=== PATIENT | female | born 1945 | race Caucasian/White ===

== ENCOUNTER 2018-02-05 09:04 | Day surgery (SDC) | payer MEDICARE, BC ==
[~2018-02-05 09:04] MED LIST: AMLO10; ASPI81CH; Amaryl1 MG; Diovan160 MG; LORPSEER24; METFORMIN HCL1000 MG; TRAZ100; VENL150ER
== END 2018-02-05 11:26 | disposition home or self-care (01) ==
LOC: ORSCSDS 09:04
PROVIDERS: Ophthalmology
PROC: 08RK3JZ Replacement of Left Lens with Synthetic Substitute, Percutaneous Approach (ICD-10-PCS; principal; 2018-02-05 10:30)
DX: H25.12 Age-related nuclear cataract, left eye (principal); H52.202 Unspecified astigmatism, left eye; E11.9 Type 2 diabetes mellitus without complications; I10 Essential (primary) hypertension; Z79.82 Long term (current) use of aspirin; Z79.84 Long term (current) use of oral hypoglycemic drugs; Z79.899 Other long term (current) drug therapy; Z87.891 Personal history of nicotine dependence
CPT/HCPCS: 82947; J2250; J3010; J3301; J7040; V2632

== ENCOUNTER → 2019-01-19 | Outpatient (CLI) | payer MEDICARE, BC ==
[2019-01-19 12:30] LABS: BASOPHILS ABSOLUTE AUTO 0.02 K/mm3 (0.00-0.23); BASOPHILS PERCENT AUTO 0 % (0-2); EOSINOPHILS ABSOLUTE AUTO 0.01 K/mm3 (0.00-0.68); EOSINOPHILS PERCENT AUTO 0 % (0-6); Hematocrit 47.3 % (33.0-51.0); Hemoglobin 16.1 g/dL (11.5-16.0); IMMATURE GRAN ABSOLUTE AUTO 0.02 K/mm3 (0.00-0.10); IMMATURE GRAN PERCENT AUTO 0 % (0-1); LYMPHOCYTES ABSOLUTE AUTO 1.16 K/mm3 (0.84-5.20); LYMPHOCYTES PERCENT AUTO 17 % (21-46); MONOCYTES ABSOLUTE AUTO 0.73 K/mm3 (0.16-1.47); MONOCYTES PERCENT AUTO 11 % (4-13); Mean Corpuscular HGB 30.8 pg (26.0-34.0); Mean Corpuscular Volume 91 fL (80-100); Mean Platelet Volume 9.6 fL (9.1-12.4); NEUTROPHILS ABSOLUTE AUTO 4.75 K/mm3 (1.96-9.15); NEUTROPHILS PERCENT AUTO 71 % (41-73); Platelet Count 254 K/mm3 (150-400); RDW Coefficient Variation 13.1 % (11.7-14.2); RDW Standard Deviation 43.5 fL (35.1-46.3); Red Blood Cell Count 5.22 M/mm3 (3.80-5.20); White Blood Cell Count 6.69 K/mm3 (4.00-11.30)
[2019-01-19 12:39] LABS: Albumin, Blood 4.3 g/dL (3.4-5.0); Bilirubin, Total 0.6 mg/dL (0.1-1.0); Bun/Creatinine Ratio 25.5 (12.0-20.0); Calcium, Blood 9.4 mg/dL (8.5-10.1); Creatinine, Blood 1.61 mg/dL (0.40-1.00); Globulin, Blood 4.3 g/dL (2.2-4.0); Potassium, Blood 3.7 mmol/L (3.5-5.5); Total Protein, Blood 8.6 g/dL (6.4-8.2)
== END ==
LOC: LAB SHORT 12:22 → LAB EV 12:22
PROVIDERS: Emergency Medicine
DX: R10.32 Left lower quadrant pain (principal)
CPT/HCPCS: 80053; 85025

== ENCOUNTER → 2019-07-01 | Outpatient (CLI) | payer MEDICARE, BC ==
[2019-07-01 12:54] LABS: BASOPHILS ABSOLUTE AUTO 0.02 K/mm3 (0.00-0.23); BASOPHILS PERCENT AUTO 0 % (0-2); EOSINOPHILS ABSOLUTE AUTO 0.31 K/mm3 (0.00-0.68); EOSINOPHILS PERCENT AUTO 6 % (0-6); Hemoglobin 14.9 g/dL (11.5-16.0); IMMATURE GRAN ABSOLUTE AUTO 0.02 K/mm3 (0.00-0.10); IMMATURE GRAN PERCENT AUTO 0 % (0-1); LYMPHOCYTES ABSOLUTE AUTO 1.08 K/mm3 (0.84-5.20); LYMPHOCYTES PERCENT AUTO 20 % (21-46); MONOCYTES ABSOLUTE AUTO 0.52 K/mm3 (0.16-1.47); MONOCYTES PERCENT AUTO 10 % (4-13); Mean Corpuscular HGB 31.2 pg (26.0-34.0); Mean Corpuscular HGB Conc 33.9 g/dL (31.5-36.5); Mean Corpuscular Volume 92 fL (80-100); Mean Platelet Volume 9.1 fL (9.1-12.4); NEUTROPHILS ABSOLUTE AUTO 3.46 K/mm3 (1.96-9.15); NEUTROPHILS PERCENT AUTO 64 % (41-73); Platelet Count 238 K/mm3 (150-400); RDW Coefficient Variation 12.6 % (11.7-14.2); RDW Standard Deviation 42.8 fL (35.1-46.3); Red Blood Cell Count 4.78 M/mm3 (3.80-5.20); White Blood Cell Count 5.41 K/mm3 (4.00-11.30)
[2019-07-01 13:08] LABS: Alanine Aminotransfer (ALT/SGP 28 U/L (12-78); Albumin, Blood 4.1 g/dL (3.4-5.0); Alk Phos 83 U/L (40-126); Anion Gap 9 mmol/L (6-16); Aspartate Aminotrans (AST/SGOT 24 U/L (12-37); Bilirubin, Total 0.6 mg/dL (0.1-1.0); Blood Urea Nitrogen 31 mg/dL (8-24); Bun/Creatinine Ratio 20.7 (12.0-20.0); CO2, Blood 27 mmol/L (21-32); Calcium, Blood 8.9 mg/dL (8.5-10.1); Chloride, Blood 104 mmol/L (98-108); Glomerular Filtration Rate 34 (60-); Glucose, Blood 121 mg/dL (70-99); Potassium, Blood 3.6 mmol/L (3.5-5.5); Sodium, Blood 140 mmol/L (136-145); Total Protein, Blood 8.1 g/dL (6.4-8.2)
[2019-07-01 13:09] LABS: Troponin I <0.017 ng/mL (0.000-0.040)
== END | disposition home or self-care (01) ==
LOC: LAB EV 12:48 → LAB SHORT 12:48
PROVIDERS: Family Medicine
DX: R00.2 Palpitations (principal); N39.0 Urinary tract infection, site not specified
CPT/HCPCS: 80053; 83880; 84484; 85025; 87086

== ENCOUNTER → 2021-06-21 | Outpatient (CLI) | payer MEDICARE, BC ==
[2021-06-21 13:47] LABS: Alanine Aminotransfer (ALT/SGP 25 U/L (12-78); Alk Phos 95 U/L (50-136); Anion Gap 4 mmol/L (6-16); Aspartate Aminotrans (AST/SGOT 17 U/L (12-37); Bilirubin, Total 0.5 mg/dL (0.1-1.0); Blood Urea Nitrogen 23 mg/dL (8-24); Bun/Creatinine Ratio 20.4 (12.0-20.0); CHOL/HDL RATIO 3.5; CO2, Blood 29 mmol/L (21-32); Calcium, Blood 9.1 mg/dL (8.5-10.1); Chloride, Blood 105 mmol/L (98-108); Cholesterol 222 mg/dL (50-200); Creatinine, Blood 1.13 mg/dL (0.40-1.00); Globulin, Blood 4.1 g/dL (2.2-4.0); Glomerular Filtration Rate 47 (60-); Glucose, Blood 146 mg/dL (70-99); HDL Cholesterol 63 mg/dL (>39); LDL/HDL RATIO 2.2; Low Density Lipoprotein Chol 138 mg/dL (0-110); Potassium, Blood 4.4 mmol/L (3.5-5.5); Sodium, Blood 138 mmol/L (136-145); Total Protein, Blood 8.1 g/dL (6.4-8.2); Triglycerides 103 mg/dL (30-160); Very Low Density Lipoprot Chol 20 mg/dL (6-32)
[2021-06-21 14:08] LABS: BASOPHILS ABSOLUTE AUTO 0.05 K/mm3 (0.00-0.23); BASOPHILS PERCENT AUTO 1 % (0-2); EOSINOPHILS ABSOLUTE AUTO 0.22 K/mm3 (0.00-0.68); EOSINOPHILS PERCENT AUTO 4 % (0-6); IMMATURE GRAN ABSOLUTE AUTO 0.04 K/mm3 (0.00-0.10); IMMATURE GRAN PERCENT AUTO 1 % (0-1); LYMPHOCYTES ABSOLUTE AUTO 1.51 K/mm3 (0.84-5.20); LYMPHOCYTES PERCENT AUTO 30 % (21-46); MONOCYTES ABSOLUTE AUTO 0.37 K/mm3 (0.16-1.47); MONOCYTES PERCENT AUTO 7 % (4-13); Mean Corpuscular HGB 30.5 pg (26.0-34.0); Mean Corpuscular HGB Conc 32.6 g/dL (31.5-36.5); Mean Corpuscular Volume 94 fL (80-100); NEUTROPHILS ABSOLUTE AUTO 2.84 K/mm3 (1.96-9.15); NEUTROPHILS PERCENT AUTO 56 % (41-73); RDW Standard Deviation 45.2 fL (35.1-46.3); Red Blood Cell Count 4.59 M/mm3 (3.80-5.20); White Blood Cell Count 5.03 K/mm3 (4.00-11.30)
[2021-06-21 14:17] LABS: Mean Platelet Volume 10.2 fL (9.1-12.4); Platelet Count 259 K/mm3 (150-400)
[2021-06-21 14:42] LABS: Microalb/Creat Ratio UR, Rand 437.879 mg/g (0.000-30.000)
== END ==
LOC: LAB SHORT 10:30 → LAB 10:30
PROVIDERS: Physician Assistant
DX: E11.9 Type 2 diabetes mellitus without complications (principal); Z88.5 Allergy status to narcotic agent; Z88.6 Allergy status to analgesic agent; Z79.84 Long term (current) use of oral hypoglycemic drugs
CPT/HCPCS: 80053; 80061; 82043; 82570; 83036; 85025

== ENCOUNTER 2023-09-15 13:13 | Inpatient (IN) | payer MEDICARE, BC ==
[~2023-09-15] VITALS: Ht 160 cm; Wt 79.0 kg
[~2023-09-15 13:13] MED LIST changes: -AMLO10; +AMLO10 PO
[2023-09-15 14:31] LABS: BASOPHILS ABSOLUTE AUTO 0.03 K/mm3 (0.00-0.23); BASOPHILS PERCENT AUTO 0 % (0-2); EOSINOPHILS ABSOLUTE AUTO 0.21 K/mm3 (0.00-0.68); EOSINOPHILS PERCENT AUTO 3 % (0-6); Hematocrit 38.9 % (33.0-51.0); Hemoglobin 12.4 g/dL (11.5-16.0); IMMATURE GRAN ABSOLUTE AUTO 0.02 K/mm3 (0.00-0.10); IMMATURE GRAN PERCENT AUTO 0 % (0-1); LYMPHOCYTES ABSOLUTE AUTO 1.27 K/mm3 (0.84-5.20); LYMPHOCYTES PERCENT AUTO 18 % (21-46); MONOCYTES ABSOLUTE AUTO 0.52 K/mm3 (0.16-1.47); MONOCYTES PERCENT AUTO 7 % (4-13); Mean Corpuscular HGB Conc 31.9 g/dL (31.5-36.5); Mean Corpuscular Volume 97 fL (80-100); Mean Platelet Volume 9.1 fL (9.1-12.4); NEUTROPHILS ABSOLUTE AUTO 5.09 K/mm3 (1.96-9.15); NEUTROPHILS PERCENT AUTO 71 % (41-73); Platelet Count 201 K/mm3 (150-400); RDW Coefficient Variation 12.9 % (11.7-14.2); RDW Standard Deviation 46.3 fL (35.1-46.3); White Blood Cell Count 7.14 K/mm3 (4.00-11.30)
[2023-09-15 14:56] LABS: Albumin, Blood 3.7 g/dL (3.4-5.0); Bilirubin, Total 0.6 mg/dL (0.1-1.0); Bun/Creatinine Ratio 26.6 (12.0-20.0); Calcium, Blood 8.7 mg/dL (8.5-10.1); Creatinine, Blood 1.54 mg/dL (0.40-1.00); Globulin, Blood 3.8 g/dL (2.2-4.0); Potassium, Blood 5.5 mmol/L (3.5-5.5); Total Protein, Blood 7.5 g/dL (6.4-8.2)
[2023-09-15 16:31] VITALS: BP 171/80
[2023-09-15 16:32] VITALS: BP 166/78
--- NOTE | 2023-09-15 18:28 | NUR ---
ARRIVAL NOTE/SHIFT SUMMARY PT ARRIVED TO THE FLOOR FROM THE ER VIA WC, SHE IS ABLE TO STAND AND AMBULATE INDEPENDENTLY, R ARM IS IN A SLING AND HAS A BRACE WITH AN REZA WRAP ON IT, SURGERY WAS CONSULTED IN THE ER AND PLAN IS FOR THAT TO HAPPEN TOMORROW WITH HER BEING NPO AT MIDNIGHT. ADMISSION COMPLETED, BLOOD AND VERBAL RELEASE OF INFORMATION SIGNED, DISCUSSED PLAN OF CARE FOR THE MORNING IN WHICH SHE REPORTS UNDERSTANDING. NO ACUTE EVENTS THIS SHIFT, CALL LIGHT IN REACH.
[2023-09-15 19:08] VITALS: BP 147/78
[2023-09-16 04:05] VITALS: BP 149/74
--- NOTE | 2023-09-16 04:52 | NUR ---
SHIFT SUMMARY VSS. PT SLEPT ON AND OFF T/O THE NIGHT. LOW URINE OUTPUT NOTED, BLADDER SCAN SHOWS 254 THIS AM AFTER TRYING TO VOID. IV FLUIDS INFUSING. PT HAS BEEN NPO SINCE 0000 FOR SURGERY TODAY. MEDICATED FOR PAIN MULTIPLE TIMES T/O THE NIGHT, 1MG DILAUDID APPEARS TO BE VERY SEDATING. 0.5 MG ADMINISTERED W/ GOOD RESULTS. PT ON 3L VIA NC TO KEEP O2 SATS >90%. SENSATION AND CIRCULATION REMAINS INTACT IN RUE. PT CAN MOVE FINGERS ON COMMAND, GOOD CAP REFILL. OVERALL NO ACUTE EVENTS NOTED.
[2023-09-16 07:34] VITALS: BP 171/67
[2023-09-16 10:43] VITALS: BP 143/49
[2023-09-16 14:51] VITALS: BP 133/57
[2023-09-16 18:50] VITALS: BP 139/54
--- NOTE | 2023-09-16 20:05 | NUR ---
SHIFT SUMMARY PT IS AWAITING SURGERY, POSSIBLY TOMORROW OR SATURDAY. ULTRAM GIVEN FOR PAIN MANAGMENT, PT DID NOT TOLERATE DILAUDID WELL (RR DROPPED TO 10-12 AFTER DILAUDID). PT IS A 1 PERSON ASSIST WHEN OOB. PT IS TOLERATING PO. VSS. BEDSIDE REPORT GIVEN TO SOPHIA RN.
[2023-09-17] VITALS (14 sets, daily range): BP systolic 135–164; BP diastolic 43–77
[2023-09-17 04:55] LABS: BASOPHILS ABSOLUTE AUTO 0.02 K/mm3 (0.00-0.23); BASOPHILS PERCENT AUTO 0 % (0-2); EOSINOPHILS ABSOLUTE AUTO 0.14 K/mm3 (0.00-0.68); EOSINOPHILS PERCENT AUTO 2 % (0-6); Hematocrit 34.1 % (33.0-51.0); Hemoglobin 10.8 g/dL (11.5-16.0); IMMATURE GRAN ABSOLUTE AUTO 0.03 K/mm3 (0.00-0.10); IMMATURE GRAN PERCENT AUTO 0 % (0-1); LYMPHOCYTES ABSOLUTE AUTO 1.58 K/mm3 (0.84-5.20); LYMPHOCYTES PERCENT AUTO 22 % (21-46); MONOCYTES ABSOLUTE AUTO 0.86 K/mm3 (0.16-1.47); MONOCYTES PERCENT AUTO 12 % (4-13); Mean Corpuscular HGB 30.9 pg (26.0-34.0); Mean Corpuscular HGB Conc 31.7 g/dL (31.5-36.5); Mean Corpuscular Volume 98 fL (80-100); Mean Platelet Volume 9.7 fL (9.1-12.4); NEUTROPHILS ABSOLUTE AUTO 4.59 K/mm3 (1.96-9.15); NEUTROPHILS PERCENT AUTO 64 % (41-73); Platelet Count 186 K/mm3 (150-400); RDW Coefficient Variation 12.9 % (11.7-14.2); Red Blood Cell Count 3.49 M/mm3 (3.80-5.20); White Blood Cell Count 7.22 K/mm3 (4.00-11.30)
[2023-09-17 05:22] LABS: Bun/Creatinine Ratio 24.2 (12.0-20.0); Calcium, Blood 8.8 mg/dL (8.5-10.1); Creatinine, Blood 1.61 mg/dL (0.40-1.00); Potassium, Blood 4.6 mmol/L (3.5-5.5)
--- NOTE | 2023-09-17 07:55 | NUR ---
SHIFT SUMMARY AOx3. FORGETFUL. HAS BEEN NPO SINCE MIDNIGHT FOR POSSIBLE SURGERY. REPORTS NO PAIN WHILE @REST, AFTER GETTING UP OOB TO USE RESTROOM PT REPORTS 8/10 PAIN IN R ARM, MEDICATED 1x C 25MCG FENTANYL. R ARM IN SPLINT/SLING. FINGERS WARM, ABLE TO WIGGLE FINGERS, +CAP REFILL. BED ALARM ON FOR SAFETY, REPORT GIVEN TO DAY RN.
--- NOTE | 2023-09-17 13:13 | NUR ---
LEFT FOREARM IV SITE, PATENT, FLUSHED WITH 10NS.
--- NOTE | 2023-09-17 13:17 | NUR ---
TIME OUT PERFORMED FOR ACP FOR SUPRA CLAVICULAR NERVE BLOCK.
--- NOTE | 2023-09-17 19:54 | NUR ---
PT ARRIVED TO HER ROOM FROM PACU AT APPROXIMATELY 1800. PT ALERT AND ORIENTED X3 UPON ARRIVAL BACK TO THE ROOM. PT DENIES PAIN. PT REPORTS NUMBNESS TO R HAND, SHE IS UNABLE TO WIGGLE HER FINGERS, PER CHAUNCEY CHAIN OFFBEARER PT HAD A NERVE BLOCK FOR SURGERY. PT'S FINGERS ARE PINK WARM AND DRY, CAP REFIL IS <3 SECONDS.
--- NOTE | 2023-09-17 20:02 | NUR ---
SHIFT SUMMARY PT IS POD#1 FROM ORIF OF PROXIMAL R RADIUS AND ULNA. POST-OP PT DENIES PAIN SINCE SHE HAD A NERVE BLOCK. PT HAS BEEN ABLE TO VOID. SHE IS TOLERATING PO. BEDSIDE REPORT GIVEN TO JI CULLEN.
[2023-09-18 04:25] VITALS: BP 159/68
--- NOTE | 2023-09-18 04:31 | NUR ---
SHIFT SUMMARY POD 1 ORIF R RADIUS AND ULNA PT RESTED IN BED DURING THE NIGHT. PT TOLERTING PO INTAKE, VOIDING AND PASSING GAS. PT IN SLING, REZA WRAP C/D/I. PT HAS FULL SENSATION IN FINGERS, ABLE TO WIGGLE THEM. PAIN MANAGED PER EMAR. ABLE TO WEAN OFF O2 DURING THE NIGHT. SATTING ABOVE 92% ON RA. NO OTHER CONCERNS AT THIS TIME, CALL LIGHT WITHIN REACH
[2023-09-18 06:32] LABS: BASOPHILS ABSOLUTE AUTO 0.02 K/mm3 (0.00-0.23); BASOPHILS PERCENT AUTO 0 % (0-2); EOSINOPHILS ABSOLUTE AUTO 0.01 K/mm3 (0.00-0.68); EOSINOPHILS PERCENT AUTO 0 % (0-6); Hematocrit 32.9 % (33.0-51.0); Hemoglobin 10.7 g/dL (11.5-16.0); IMMATURE GRAN ABSOLUTE AUTO 0.06 K/mm3 (0.00-0.10); IMMATURE GRAN PERCENT AUTO 1 % (0-1); LYMPHOCYTES ABSOLUTE AUTO 1.06 K/mm3 (0.84-5.20); LYMPHOCYTES PERCENT AUTO 10 % (21-46); MONOCYTES ABSOLUTE AUTO 1.23 K/mm3 (0.16-1.47); MONOCYTES PERCENT AUTO 11 % (4-13); Mean Corpuscular HGB 30.7 pg (26.0-34.0); Mean Corpuscular HGB Conc 32.5 g/dL (31.5-36.5); Mean Corpuscular Volume 95 fL (80-100); Mean Platelet Volume 9.4 fL (9.1-12.4); NEUTROPHILS PERCENT AUTO 78 % (41-73); Platelet Count 209 K/mm3 (150-400); RDW Coefficient Variation 12.6 % (11.7-14.2); RDW Standard Deviation 43.5 fL (35.1-46.3); Red Blood Cell Count 3.48 M/mm3 (3.80-5.20); White Blood Cell Count 10.88 K/mm3 (4.00-11.30)
[2023-09-18 07:08] VITALS: BP 169/62
[2023-09-18 07:14] LABS: Bun/Creatinine Ratio 27.5 (12.0-20.0); Calcium, Blood 8.5 mg/dL (8.5-10.1); Creatinine, Blood 1.49 mg/dL (0.40-1.00); Potassium, Blood 4.7 mmol/L (3.5-5.5)
--- NOTE | 2023-09-18 07:52 | NUR ---
PT REFUSED CBG THIS AM. RN NOTIFIED
[2023-09-18] MEDS ORDERED: ACET325 PO (13:21)
[2023-09-18] MEDS ORDERED: TRAM50 PO (13:22)
--- NOTE | 2023-09-18 14:01 | NUR ---
DC HOME WRITTEN & VERBAL DC INSTRUCTIONS GIVEN TO PT, PT VERBALIZED GOOD UNDERSTANDING. ALL CONCERNS & QUESTIONS ADDRESSED. PIV DC'D WITH CATH TIP INTACT, NO REDNESS OR SWELLING NOTED. NEW MED SCRIPTS FAXED TO [facility] PER PT REQUEST. PT TO PV VIA W/C WITH ALL PERSONAL BELONGINGS ACCOMPANIED BY BOTTOM IRONER & .
== END 2023-09-18 13:57 | disposition home or self-care (01) | DRG 511 ==
LOC: ER 13:13 → SURS 16:01
PROVIDERS: Emergency Medicine; Family Medicine; Orthopaedic Surgery Sports Medicine; ADMIT Internal Medicine
PROC: 0PRH0JZ Replacement of Right Radius with Synthetic Substitute, Open Approach (ICD-10-PCS; 2023-09-17)
PROC: 0PSH0ZZ Reposition Right Radius, Open Approach (ICD-10-PCS; 2023-09-17)
PROC: 0PSK04Z Reposition Right Ulna with Internal Fixation Device, Open Approach (ICD-10-PCS; principal; 2023-09-17 13:30)
DX: S52.121A Displaced fracture of head of right radius, initial encounter for closed fracture (principal); E87.1 Hypo-osmolality and hyponatremia; S52.021A Displaced fracture of olecranon process without intraarticular extension of right ulna, initial encounter for closed fracture; W01.0XXA Fall on same level from slipping, tripping and stumbling without subsequent striking against object, initial encounter; Y92.008 Other place in unspecified non-institutional (private) residence as the place of occurrence of the external cause; E11.22 Type 2 diabetes mellitus with diabetic chronic kidney disease; I12.9 Hypertensive chronic kidney disease with stage 1 through stage 4 chronic kidney disease, or unspecified chronic kidney disease; K21.9 Gastro-esophageal reflux disease without esophagitis; N18.30 Chronic kidney disease, stage 3 unspecified; D63.1 Anemia in chronic kidney disease; F32.A Depression, unspecified; Z88.5 Allergy status to narcotic agent; Z88.8 Allergy status to other drugs, medicaments and biological substances; Z79.84 Long term (current) use of oral hypoglycemic drugs; Z79.82 Long term (current) use of aspirin; Z87.891 Personal history of nicotine dependence
CPT/HCPCS: 29105; 36415; 73080; 73090; 73200; 76377; 80048; 80053; 82947; 85025; 93005; 93010; 94762; 96374-59; 96375-59; 97110; 97116; 97162; 97165; 99285-25; A9270; J0171; J0690; J1100; J1170; J2001; J2270; J2405; J2704; J3010; J7120

== ENCOUNTER → 2024-03-30 | Outpatient (CLI) | payer MEDICARE, BC ==
[~2024-03-30] MED LIST changes: +ACET325 PO; +TRAM50 PO
[2024-03-30 18:55] LABS: BASOPHILS ABSOLUTE AUTO 0.03 K/mm3 (0.00-0.23); BASOPHILS PERCENT AUTO 1 % (0-2); EOSINOPHILS ABSOLUTE AUTO 0.15 K/mm3 (0.00-0.68); EOSINOPHILS PERCENT AUTO 4 % (0-6); Hematocrit 37.2 % (33.0-51.0); IMMATURE GRAN ABSOLUTE AUTO 0.02 K/mm3 (0.00-0.10); IMMATURE GRAN PERCENT AUTO 1 % (0-1); LYMPHOCYTES PERCENT AUTO 33 % (21-46); MONOCYTES ABSOLUTE AUTO 0.45 K/mm3 (0.16-1.47); MONOCYTES PERCENT AUTO 11 % (4-13); Mean Corpuscular HGB Conc 32.3 g/dL (31.5-36.5); Mean Corpuscular Volume 96 fL (80-100); Mean Platelet Volume 10.2 fL (9.1-12.4); NEUTROPHILS ABSOLUTE AUTO 2.18 K/mm3 (1.96-9.15); NEUTROPHILS PERCENT AUTO 52 % (41-73); Platelet Count 224 K/mm3 (150-400); RDW Coefficient Variation 13.7 % (11.7-14.2); Red Blood Cell Count 3.87 M/mm3 (3.80-5.20); White Blood Cell Count 4.23 K/mm3 (4.00-11.30)
[2024-03-30 19:50] LABS: Alanine Aminotransfer (ALT/SGP 34 U/L (12-78); Albumin, Blood 4.1 g/dL (3.4-5.0); Alk Phos 113 U/L (50-136); Anion Gap 7 mmol/L (3-11); Aspartate Aminotrans (AST/SGOT 29 U/L (12-37); Bilirubin, Total 0.5 mg/dL (0.1-1.0); Blood Urea Nitrogen 42 mg/dL (8-24); CHOL/HDL RATIO 2.6; CO2, Blood 25 mmol/L (21-32); Calcium, Blood 8.8 mg/dL (8.5-10.1); Chloride, Blood 111 mmol/L (98-108); Cholesterol 139 mg/dL (50-200); Glucose, Blood 162 mg/dL (70-99); HDL Cholesterol 54 mg/dL (>39); LDL/HDL RATIO 1.2; Low Density Lipoprotein Chol 62 mg/dL (0-110); Potassium, Blood 4.9 mmol/L (3.5-5.5); Sodium, Blood 138 mmol/L (136-145); Total Protein, Blood 8.1 g/dL (6.4-8.2); Triglycerides 113 mg/dL (30-160); Very Low Density Lipoprot Chol 22 mg/dL (6-32)
[2024-03-30 19:57] LABS: Bun/Creatinine Ratio 30.2 (12.0-20.0); Creatinine, Blood 1.39 mg/dL (0.40-1.00); Glomerular Filtration Rate 39 (60-)
== END ==
LOC: LAB 18:04 → LAB SHORT 18:04
PROVIDERS: Family Medicine
DX: E11.65 Type 2 diabetes mellitus with hyperglycemia (principal); I12.9 Hypertensive chronic kidney disease with stage 1 through stage 4 chronic kidney disease, or unspecified chronic kidney disease
CPT/HCPCS: 80053; 80061; 82043; 83036; 85025

== ENCOUNTER 2024-08-26 01:12 | Emergency (ER) | payer MEDICARE, BC ==
[~2024-08-26] VITALS: Ht 160 cm; Wt 69.8 kg
[2024-08-26] MEDS ORDERED: Losartan Potassium 50 MG Tab PO ONE (04:05)
[2024-08-26 04:22] LABS: BASOPHILS ABSOLUTE AUTO 0.03 K/mm3 (0.00-0.23); BASOPHILS PERCENT AUTO 1 % (0-2); EOSINOPHILS PERCENT AUTO 7 % (0-6); Hematocrit 37.4 % (33.0-51.0); Hemoglobin 12.3 g/dL (11.5-16.0); IMMATURE GRAN ABSOLUTE AUTO 0.02 K/mm3 (0.00-0.10); IMMATURE GRAN PERCENT AUTO 1 % (0-1); LYMPHOCYTES ABSOLUTE AUTO 1.52 K/mm3 (0.84-5.20); LYMPHOCYTES PERCENT AUTO 34 % (21-46); MONOCYTES ABSOLUTE AUTO 0.53 K/mm3 (0.16-1.47); MONOCYTES PERCENT AUTO 12 % (4-13); Mean Corpuscular HGB 31.2 pg (26.0-34.0); Mean Corpuscular HGB Conc 32.9 g/dL (31.5-36.5); Mean Corpuscular Volume 95 fL (80-100); Mean Platelet Volume 9.6 fL (9.1-12.4); NEUTROPHILS ABSOLUTE AUTO 2.03 K/mm3 (1.96-9.15); NEUTROPHILS PERCENT AUTO 46 % (41-73); Platelet Count 211 K/mm3 (150-400); RDW Coefficient Variation 13.1 % (11.7-14.2); RDW Standard Deviation 45.7 fL (35.1-46.3); Red Blood Cell Count 3.94 M/mm3 (3.80-5.20); White Blood Cell Count 4.43 K/mm3 (4.00-11.30)
[2024-08-26 04:40] LABS: Albumin, Blood 3.6 g/dL (3.4-5.0); Bilirubin, Total 0.5 mg/dL (0.1-1.0); Bun/Creatinine Ratio 25.3 (12.0-20.0); Calcium, Blood 8.8 mg/dL (8.5-10.1); Creatinine, Blood 1.7 mg/dL (0.40-1.00); Globulin, Blood 3.6 g/dL (2.2-4.0); Potassium, Blood 4.8 mmol/L (3.5-5.5); Total Protein, Blood 7.2 g/dL (6.4-8.2)
[2024-08-26 04:47] VITALS: BP 185/75
== END 2024-08-26 04:48 | disposition home or self-care (01) ==
LOC: ER 01:12
PROVIDERS: Emergency Medicine
DX: I16.0 Hypertensive urgency (principal); I10 Essential (primary) hypertension; E11.9 Type 2 diabetes mellitus without complications; Z87.891 Personal history of nicotine dependence; Z79.899 Other long term (current) drug therapy; Z88.6 Allergy status to analgesic agent; Z88.5 Allergy status to narcotic agent
CPT/HCPCS: 80053; 85025; 93005; 93010; 99283-25; A9270

== ENCOUNTER → 2025-05-20 | Outpatient (CLI) | payer MEDICARE, BC ==
[2025-05-20 12:02] LABS: Source, Urine Clean Catch
[2025-05-20 17:08] LABS: Bilirubin, Urine Neg (Neg); Glucose Qualitative, Urine 4+ (Neg); Ketones, Urine Neg (Neg); Leukocyte Esterase, Urine Neg (Neg); Protein, Urine 2+ (Neg); Specific Gravity, Urine 1.020 (1.003-1.022); Urobilinogen, Urine NORM (Normal)
[2025-05-20 17:35] LABS: Color, Urine Pale Yellow (P-Yellow); Red Blood Cells, Urine 0-2 /hpf (0-2); White Blood Cells, Urine 0-2 /hpf (0-5)
[2025-05-20 19:40] LABS: Creatinine, Urine Random 117.0 mg/dL (27.00-270.00); Microalb/Creat Ratio UR, Rand 133.333 mg/g (0.000-30.000); Microalbumin, Random Urine 156.0 mg/L (0.000-20.000)
== END ==
LOC: LAB 12:00 → LAB SHORT 12:00
PROVIDERS: Hospitalist
DX: E11.22 Type 2 diabetes mellitus with diabetic chronic kidney disease (principal); N18.32 Chronic kidney disease, stage 3b; D47.2 Monoclonal gammopathy
CPT/HCPCS: 81001; 82043; 82570